=== PATIENT | female | born 1950 ===

== ENCOUNTER 2021-06-12 00:34 | Emergency (ER) | payer BC, OTHER ==
[2021-06-12 01:19] LABS: Basophils % 0.9 % (0-1.3); Lymphocytes % 49.7 % (15.3-44.8); RBC Red Blood Cell Count 4.21 M/uL (3.86-4.86)
[2021-06-12 01:20] LABS: Protime INR 0.91
[2021-06-12 01:35] LABS: Urine Blood Negative (Negative); Urine Glucose Negative (Negative); Urine Protein Negative (Negative); Urine Specific Gravity 1.015 (1.005-1.030); Urine pH 5.5 (5.0-7.0)
[2021-06-12 01:55] LABS: ALT/SGPT 35 U/L (12-78); AST/SGOT 26 U/L (15-37); Albumin 3.8 g/dL (3.4-5.0); Alkaline Phosphatase 74 U/L (45-117); BUN Blood Urea Nitrogen 18 mg/dL (7-18); Bicarbonate 26 mmol/L (21-32); Bilirubin Direct < 0.1 mg/dL (0-0.2); Bilirubin Total 0.1 mg/dL (0.2-1.0); Glucose Level 107 mg/dL (74-106); Magnesium 2.2 mg/dL (1.8-2.4); NT PRO-BNP 138 pg/mL (<125); Potassium 4.2 mmol/L (3.5-5.1); Protein, Total 7.3 g/dL (6.4-8.2); Sodium Level 141 mmol/L (136-145); Troponin (Emerg Dept Use Only) < 0.02 ng/mL (0.0-0.045)
[2021-06-12 01:58] LABS: Barbiturates NEGATIVE (NEGATIVE); Benzodiazepines NEGATIVE (NEGATIVE); Cocaine NEGATIVE (NEGATIVE); METHAMPHETAM NEGATIVE (NEGATIVE); Methadone NEGATIVE (NEGATIVE); Opiates NEGATIVE (NEGATIVE); Phencyclidine NEGATIVE (NEGATIVE); THC Cannibis NEGATIVE (NEGATIVE)
--- NOTE | 2021-06-12 04:21 | EDPHYS ---
Physician Documentation [facility] Name: Estelle Garcia Age: 71 yrs Sex: Female : 1950 Arrival Date: 06/12/2021 Time: 00:36 Bed 26 Private MD: ED Physician Dale Gunter HPI: 06/12 01:27 This 71 yrs old Female presents to ER via EMS with complaints of Fall Injury. 7 01:27 Details of fall: The patient fell from an upright position, while standing. 7 01:27 Onset: The symptoms/episode began/occurred just prior to arrival, today. Associated 7 injuries: The patient sustained injury to the head, contusion, hematoma. Severity of symptoms: At their worst the symptoms were moderate, earlier today, in the emergency department the symptoms are unchanged. Patient admitted to drinking alcohol tonight and fell. She denies any symptoms prior to falling.. Historical: - Allergies: 00:49 No Known Allergies; bc5 - PMHx: 00:49 None; bc5 - Immunization history:: Adult Immunizations up to date. - Social history:: Smoking status: Patient denies any tobacco usage or history of. Patient/guardian denies using IV drugs, tobacco products. - Immunization history: Last tetanus immunization: unknown. ROS: 01:27 Constitutional: Negative for fever, chills, and weight loss, Eyes: Negative for injury, mh7 pain, redness, and discharge, ENT: Negative for injury, pain, and discharge, Neck: Negative for injury, pain, and swelling, Cardiovascular: Negative for chest pain, palpitations, and edema, Respiratory: Negative for shortness of breath, cough, wheezing, and pleuritic chest pain, Abdomen/GI: Negative for abdominal pain, nausea, vomiting, diarrhea, and constipation, Back: Negative for injury and pain, : Negative for injury, bleeding, discharge, and swelling, MS/Extremity: Negative for injury and deformity, Neuro: Negative for headache, weakness, numbness, tingling, and seizure, Psych: Negative for depression, anxiety, suicide ideation, homicidal ideation, and hallucinations, Allergy/Immunology: Negative for hives, rash, and allergies, Endocrine: Negative for neck swelling, polydipsia, polyuria, polyphagia, and marked weight changes, Hematologic/Lymphatic: Negative for swollen nodes, abnormal bleeding, and unusual bruising. Exam: 01:27 Eyes: Pupils equal round and reactive to light, extra-ocular motions intact. Lids and mh7 lashes normal. Conjunctiva and sclera are non-icteric and not injected. Cornea within normal limits. Periorbital areas with no swelling, redness, or edema. ENT: Nares patent. No nasal discharge, no septal abnormalities noted. Tympanic membranes are normal and external auditory canals are clear. Oropharynx with no redness, swelling, or masses, exudates, or evidence of obstruction, uvula midline. Mucous membranes moist. Neck: Trachea midline, no thyromegaly or masses palpated, and no cervical lymphadenopathy. Supple, full range of motion without nuchal rigidity, or vertebral point tenderness. No Meningismus. Chest/axilla: Normal chest wall appearance and motion. Nontender with no deformity. No lesions are appreciated. Cardiovascular: Regular rate and rhythm with a normal S1 and S2. No gallops, murmurs, or rubs. Normal PMI, no JVD. No pulse deficits. Respiratory: Lungs have equal breath sounds bilaterally, clear to auscultation and percussion. No rales, rhonchi or wheezes noted. No increased work of breathing, no retractions or nasal flaring. Abdomen/GI: Soft, non-tender, with normal bowel sounds. No distension or tympany. No guarding or rebound. No evidence of tenderness throughout. Back: No spinal tenderness. No costovertebral tenderness. Full range of motion. Skin: Warm, dry with normal turgor. Normal color with no rashes, no lesions, and no evidence of cellulitis. MS/ Extremity: Pulses equal, no cyanosis. Neurovascular intact. Full, normal range of motion. 01:27 Constitutional: The patient appears in no acute distress, alert, awake, smells of alcohol, ETOH, Appears intoxicated 01:27 Head/face: Noted is contusion, that is superficial, of the right cheek, ecchymosis, that is mild, of the right cheek, tenderness, that is mild, of the right cheek. 01:27 Neuro: Orientation: unable to test, the patient is clinically intoxicated, Mentation: mh7 unable to test, the patient is clinically intoxicated, Memory: unable to test, the patient is clinically intoxicated, Cranial nerves: unable to test, the patient is clinically intoxicated, Cerebellar function: unable to test, the patient is clinically intoxicated, Motor: is normal, Sensation: is normal, Gait: not tested. seizure activity, is not displayed by the patient, Abnormal movements: there are no abnormal movements. Vital Signs: 00:48 BP 145 / 78; Pulse 77; Resp 17; Temp 97.9(O); Pulse Ox 100% on R/A; Weight 52.16 kg bc5 (R); Height 5 ft. 6 in. (167.64 cm) (R); Pain 0/10; 03:02 BP 133 / 75; Pulse 71; Resp 17; Temp 97.9(O); Pulse Ox 100% on R/A; Pain 0/10; bc5 04:45 BP 109 / 74 LA Supine (auto/reg); Pulse 72; Resp 16; Temp 98(O); Pulse Ox 100% ; Pain sj1 0/10; 00:48 Body Mass Index 18.56 (52.16 kg, 167.64 cm) bc5 [place] Coma Score: 00:51 Eye Response: spontaneous(4). Verbal Response: oriented(5). Motor Response: obeys bc5 commands(6). Total: 15. Trauma Score (Adult): 00:51 Eye Response: spontaneous(1); Verbal Response: oriented(1); Motor Response: obeys bc5 commands(2); Systolic BP: None(0); Respiratory Rate: 10 to 29 per min(4); Herminia Score: 15; Trauma Score: 8 MDM: 04:17 Differential diagnosis: abrasion, closed head injury, contusion, fracture. Data [facility] reviewed: vital signs, nurses notes, lab test result(s), cardiac enzymes, CBC, drug level(s), alcohol, electrolytes, EKG, radiologic studies, CT scan, plain films. Data interpreted: Pulse oximetry: on room air is 100 %. Interpretation: normal. Counseling: I had a detailed discussion with the patient and/or guardian regarding: the historical points, exam findings, and any diagnostic results supporting the discharge/admit diagnosis, lab results, radiology results, the need for outpatient follow up, to return to the emergency department if symptoms worsen or persist or if there are any questions or concerns that arise at home. Response to treatment: the patient's symptoms have markedly improved after treatment. ED course: No acute distress, vital signs stable, no focal neurological deficit. Awake, alert, and oriented x 4. Appropriate with questions. Ambulating without difficulty. She states that she had multiple alcoholic beverages last night and tripped over some furniture. at bedside and corroborates story. Patient and her request to be discharged in the ED at this time.. 04:21 Patient medically screened. [facility] 06/12 00:58 Order name: Basic Metabolic Panel [facility] 06/12 00:58 Order name: CBC with Diff [facility] 06/12 00:58 Order name: LFT's; Complete Time: 02:24 [facility] 06/12 00:58 Order name: Magnesium; Complete Time: 02:24 [facility] 06/12 00:58 Order name: NT PRO-BNP; Complete Time: 02:24 [facility] 06/12 00:58 Order name: PT-INR; Complete Time: 01:26 [facility] 06/12 00:58 Order name: Troponin (emerg Dept Use Only); Complete Time: 02:24 [facility] 06/12 00:58 Order name: XRAY Chest (1 view) [facility] 06/12 00:58 Order name: UDS; Complete Time: 02:24 [facility] 06/12 00:58 Order name: ETOH Level; Complete Time: 02:24 [facility] 06/12 00:59 Order name: Basic Metabolic Panel; Complete Time: 02:24 [facility] 06/12 00:59 Order name: CBC with Automated Diff; Complete Time: 01:26 [facility] 06/12 01:16 Order name: Type And Screen; Complete Time: 02:37 3 06/12 01:35 Order name: Urine Dipstick-Ancillary; Complete Time: 02:24 [facility] 06/12 00:58 Order name: EKG; Complete Time: 00:59 7 06/12 00:58 Order name: Cardiac monitoring; Complete Time: 01:08 [facility] 06/12 00:58 Order name: EKG - Nurse/Tech; Complete Time: 01:39 7 06/12 00:58 Order name: IV Saline Lock; Complete Time: 01:03 7 06/12 00:58 Order name: Labs collected and sent; Complete Time: 01:03 [facility] 06/12 00:58 Order name: O2 Per Protocol; Complete Time: 01:03 [facility] 06/12 00:58 Order name: O2 Sat Monitoring; Complete Time: 01:03 [facility] 06/12 00:58 Order name: Urine Dipstick-Ancillary (obtain specimen); Complete Time: 01:40 [facility] 06/12 00:58 Order name: CT Head C Spine [facility] 06/12 00:58 Order name: CT Facial Bones W/O Con [facility] Administered Medications: No medications were administered Disposition Summary: 06/12/21 04:21 Discharge Ordered Location: Home [facility] Problem: new [facility] Symptoms: have improved [facility] Condition: Stable [facility] Diagnosis - Alcohol use, unspecified with intoxication [facility] - Fall, Facial Contusions [facility] Followup: [facility] - With: Private Physician - When: 1 - 2 days - Reason: Worsening of condition, Recheck today's complaints, Continuance of care, Re-evaluation by your physician Discharge Instructions: - Discharge Summary Sheet [facility] - Alcohol Intoxication, Jrcv-[id number] [facility] - Facial or Scalp Contusion, [id number]-he-[id number] [facility] Forms: - Medication Reconciliation Form [facility] - Thank You Letter [facility] - Antibiotic Education [facility] - Prescription Opioid Use [facility] Signatures: Dispatcher [employer] EDMS Mulugeta Hogan, ANODIZE MACHINE OPERATOR-C ANODIZE MACHINE OPERATOR-Cla1 Dale Gunter MD MD [facility] Lynne Pantoja RN RN bc5
--- NOTE | 2021-06-12 04:21 | ER ---
Nurse's Notes [facility] Name: Estelle Garcia Age: 71 yrs Sex: Female : 1950 Arrival Date: 06/12/2021 Time: 00:36 Bed 26 Private MD: Diagnosis: Alcohol use, unspecified with intoxication;Fall, Facial Contusions Presentation: 06/12 00:45 Chief complaint: EMS states: Fall. Per EMS family reports Pt passed out, fell from 5 standing hitting face on floor. Per EMS Pt was confused at scene and was unable to recall falling down. swelling noted to right side of face, dried blood on lips. Pt endorsed 3 glasses of wine, oriented to self. but speaking in clear and complete sentences at this this. Dexi 109. Coronavirus screen: Vaccine status:. 00:45 Method Of Arrival: EMS: [place] [address] 00:48 Ebola Screen: Patient negative for fever greater than or equal to 101.5 degrees bc5 Fahrenheit, and additional compatible Ebola Virus Disease symptoms Patient denies exposure to infectious person. Patient denies travel to an Ebola-affected area in the 21 days before illness onset. No symptoms or risks identified at this time. Initial Sepsis Screen: Does the patient meet any 2 criteria? No. Patient's initial sepsis screen is negative. Does the patient have a suspected source of infection? No. Patient's initial sepsis screen is negative. Risk Assessment: Do you want to hurt yourself or someone else? Patient reports no desire to harm self or others. Onset of symptoms was June 12, 2021. 00:48 Acuity: EVERETTE 3 5 00:52 Care prior to arrival: None. Mechanism of Injury: Fall. Trauma event details: Injury bc5 occurred: June 12, 2021. Triage Assessment: 00:49 General: Appears comfortable, Behavior is cooperative, agitated, fussy. Pain: Denies bc5 pain. Trauma Activation: Alert Physician: ED Physician; Name: Jani; Notified At: ; Arrived At: Physician: General Surgeon; Name: ; Notified At: ; Arrived At: Physician: Radiology; Name: ; Notified At: ; Arrived At: Physician: Respiratory; Name: ; Notified At: ; Arrived At: Physician: Lab; Name: ; Notified At: ; Arrived At: Historical: - Allergies: 00:49 No Known Allergies; bc5 - PMHx: 00:49 None; bc5 - Immunization history:: Adult Immunizations up to date. - Social history:: Smoking status: Patient denies any tobacco usage or history of. Patient/guardian denies using IV drugs, tobacco products. - Immunization history: Last tetanus immunization: unknown. Screenin:50 Abuse screen: Denies threats or abuse. Denies injuries from another. Nutritional bc5 screening: No deficits noted. Tuberculosis screening: No symptoms or risk factors identified. Fall Risk Fall in past 12 months (25 points). No secondary diagnosis (0 pts). IV access (20 points). Ambulatory Aid- None/Bed Rest/Nurse Assist (0 pts). Gait- Normal/Bed Rest/Wheelchair (0 pts) Mental Status- Overestimates/Forgets Limitations (15 pts.). Total Kam Fall Scale indicates Low Risk Score (25-44 pts). Fall prevention measures have been instituted. Side Rails Up X 2 Placed close to Nursing Station Frequent Obs/Assesments occuring. Primary Survey: 00:50 NO uncontrolled hemorrhage observed. A: The patient is alert. Airway: patent. bc5 Breathing/Chest: Respiratory pattern: regular, Respiratory effort: unlabored. Circulation: Skin color: pink. Disability Alert. Exposure/Environment: All clothing and personal items were removed. There is no evidence of uncontrolled external bleeding. No obvious injuries are noted at this time. Reassessment Airway. 00:52 Reassessment Breathing/Chest Respiratory pattern Regular Respiratory effort Unlabored bc5 Circulation Heart rhythm Sinus rhythm Disability Alert. Secondary Survey: 00:55 HEENT: Face Other swelling and discoloration noted to right side of face. bc5 Gastrointestinal: No deficits noted. : No deficits noted. Musculoskeletal: No deficits noted. Assessment: 00:54 Neuro: Denies weakness blurred vision dizziness. EENT: Denies. Cardiovascular: No bc5 deficits noted. Respiratory: No deficits noted. GI: No deficits noted. : No deficits noted. Derm: No deficits noted. Musculoskeletal: No deficits noted. Injury Description: Bruise swelling noted to right face. Vital Signs: 00:48 BP 145 / 78; Pulse 77; Resp 17; Temp 97.9(O); Pulse Ox 100% on R/A; Weight 52.16 kg bc5 (R); Height 5 ft. 6 in. (167.64 cm) (R); Pain 0/10; 03:02 BP 133 / 75; Pulse 71; Resp 17; Temp 97.9(O); Pulse Ox 100% on R/A; Pain 0/10; bc5 04:45 BP 109 / 74 LA Supine (auto/reg); Pulse 72; Resp 16; Temp 98(O); Pulse Ox 100% ; Pain sj1 0/10; 00:48 Body Mass Index 18.56 (52.16 kg, 167.64 cm) bc5 Herminia Coma Score: 00:51 Eye Response: spontaneous(4). Verbal Response: oriented(5). Motor Response: obeys bc5 commands(6). Total: 15. Trauma Score (Adult): 00:51 Eye Response: spontaneous(1); Verbal Response: oriented(1); Motor Response: obeys bc5 commands(2); Systolic BP: None(0); Respiratory Rate: 10 to 29 per min(4); [place] Score: 15; Trauma Score: 8 ED Course: 00:36 Patient arrived in ED. eb 00:45 Lynne Pantoja, KIRSTEN is Primary Nurse. bc5 00:49 Triage completed. bc5 00:50 Dale Gunter MD is Attending Physician. mh7 00:52 Arm band placed on left wrist. bc5 00:52 No provider procedures requiring assistance completed. Inserted saline lock: 20 gauge bc5 in right antecubital area, using aseptic technique. 00:53 Placed in gown. Bed in low position. Call light in reach. Side rails up X2. bc5 00:53 Patient maintains SpO2 saturation greater than 95% on room air. Thermoregulation: NA. bc5 01:39 CT Head C Spine In Process Unspecified. EDMS 01:39 CT Facial Bones W/O Con In Process Unspecified. EDMS 01:39 Basic Metabolic Panel Sent. bc5 01:39 CBC with Diff Sent. bc5 01:39 XRAY Chest (1 view) Sent. bc5 01:40 Type And Screen Sent. bc5 01:40 Basic Metabolic Panel Sent. bc5 01:40 ETOH Level Sent. bc5 01:40 UDS Sent. bc5 01:46 XRAY Chest (1 view) In Process Unspecified. EDMS 04:45 IV discontinued, intact, bleeding controlled, No redness/swelling at site. sj1 Administered Medications: No medications were administered Intake: 00:51 NA bc5 Outcome: 04:21 Discharge ordered by . farhan 04:44 Discharged to home ambulatory, with family. sj1 04:44 Condition: stable 04:44 Discharge instructions given to patient, family, Instructed on discharge instructions, follow up and referral plans. Demonstrated understanding of instructions, follow-up care. 04:45 Patient's length of stay in the Emergency Department was greater than 2 hours. md pascal ordersPatient's length of stay extended due to 04:46 Patient left the ED. sj1 Signatures: Dispatcher [employer] EDMS Lynn Pederson Maurice, MD MD 7 Lynne Pantoja RN RN bc5 Kera Patel, KIRSTEN RN sj1 Corrections: (The following items were deleted from the chart) 00:56 00:45 Chief complaint: EMS states: Fall. Per EMS family reports Pt passed out, fell bc5 from standing hitting face on floor. Per EMS Pt was confused at scene and was unable to recall falling down. swelling noted to right side of face, dried blood on lips. Pt endorsed 3 glasses of wine, oriented to self. but speaking in clear and complete sentences at this this bc5
[2021-06-12 04:53] VITALS: O2SAT 100
[2021-06-12 04:56] VITALS: BP 109/74; TEMP 98
--- NOTE | 2021-06-12 07:50 | RAD REPORT ---
EXAM DESCRIPTION: RAD - Chest Single View - 06/12/2021 1:46 am CLINICAL HISTORY: Fall COMPARISON: Head C Spine Mpr Wo Con dated 06/12/2021 FINDINGS: Lines: None. Lungs: Mild patchy bilateral airspace disease noted P Pleural: No significant pleural effusions or pneumothorax. Cardiac: The heart size is within normal limits. Bones: No acute fractures. Other: IMPRESSION: Mild bilateral airspace opacities may reflect multifocal pneumonia.
--- NOTE | 2021-06-13 10:50 | RAD REPORT ---
EXAM DESCRIPTION: CT - Head C Spine Mpr Wo Con - 06/12/2021 6:04 am CLINICAL HISTORY: 71 years, Female, trauma COMPARISON: None. FINDINGS: Multiple transaxial tomograms of the brain were obtained from the base of the skull to the vertex without contrast. 2-D multiplanar reformats and the coronal and sagittal plane were performed and reviewed. Multiple axial CT images through the cervical spine were obtained at 2 mm slice thickness at 2 mm int erval reconstruction. In addition 2-D multiplanar reformats and the sagittal coronal plane were perfo rmed and reviewed. This exam was performed according to our departmental dose-optimization protocol, which includes auto mated exposure control, adjustment of the mA and/or kV according to patient size and/or use of iterat wesly reconstruction technique. CT head: Brain parenchyma demonstrate mild prominence of the sulci and gyri are corresponding to mild cerebral and cerebellar atrophy. There is no midline shift and/or mass effect. There is no evidence for acute intracranial hemorrhage. Lateral ventricles and cisterns displace normal appearance. No intra or extra axial fluid collections were seen. The calvarium is intact with no evidence for fract ure. The visualized portions of the paranasal sinuses and orbits demonstrate to be clear. CT C-spine: The alignment of the vertebral bodies are normal. There is no evidence of fracture or s ubluxation. There is minimal degenerative disc disease with decreased intervertebral disc height and posterior osteophyte complex at C4/C5, C5/C6 and C6/C7. The spinal canal demonstrate no evidence for significant stenosis. Neural foramina demonstrate to be unremarkable. The uncovertebral joints demons trate to be normal. There is no prevertebral soft tissue swelling. Small cystic structure with benign appearing is identified within the posterior left side vertebral body of C4 Visualized portions of the lung apices demonstrate to be unremarkable. Sagittal coronal reformatted images demonstrate no s ubluxation or bony abnormalities. IMPRESSION: Mild cerebral and cerebellar atrophy. No evidence for acute traumatic injury to the head or cervical spine. Minimal degenerative disc disease at C4-C7. Electronically signed by: Ayden Davis MD 06/12/2021 1:56 AM CDT Due to temporary technical issues with the PACS/Fluency reporting system, reports are being signed by the in house radiologist without review as a courtesy to ensure prompt reporting. The interpreting r adiologist is fully responsible for the content of the report.
--- NOTE | 2021-06-13 10:55 | RAD REPORT ---
EXAM DESCRIPTION: CT - Facial Bones W/ Mpr - 06/12/2021 6:04 am CLINICAL HISTORY: 71 years Female TRAUMA TECHNIQUE: Axial CT of the facial bones was performed without intravenous contrast with sagittal and coronal reformatted images. The CT study is performed according to ALARA (as low as reasonably achie vable) or ALARA/IMAGE GENTLY, with automatic adjustment of mA and/or kV according to patient size. Performed on: 06/12/2021 at 1:20 AM COMPARISON: None. FINDINGS: There is no evidence of acute facial bone fracture. The mandible is intact. The temporom andibular joints are preserved. Both globes are intact and are symmetric. The extraocular muscles and optic nerves are symmetric. T he intraconal fat is preserved. There is no evidence of intraorbital emphysema. There is no significant mucosal thickening of the paranasal sinuses. The nasal bones are intact. The bony nasal septum is midline. The anterior maxillary spine is intact. Mastoid air cells and middle ear cavities are clear. There is soft tissue swelling anterior to the right hemimandible, right hemimaxilla and right maxilla ry sinus most consistent with contusion and hematoma. IMPRESSION: 1. No evidence of acute facial bone fracture. 2. Soft tissue swelling anterior to the right hemimandible, right hemimaxilla and right maxillary sin us most consistent with contusion and hematoma. Electronically signed by: Jo Flores DO 06/12/2021 2:12 AM CDT Due to temporary technical issues with the PACS/Fluency reporting system, reports are being signed by the in house radiologist without review as a courtesy to ensure prompt reporting. The interpreting r adiologist is fully responsible for the content of the report.
== END 2021-06-12 04:46 | disposition home or self-care (01) ==
LOC: ER 00:34
DX: S00.83XA Contusion of other part of head, initial encounter (principal); F10.929 Alcohol use, unspecified with intoxication, unspecified; W18.39XA Other fall on same level, initial encounter; Y93.89 Activity, other specified; Y92.9 Unspecified place or not applicable
CPT/HCPCS: 36415; 70450; 70486; 71045; 72125; 76377; 80048; 80076; 80307; 80320; 81003; 83735; 83880; 84484; 85025; 85610; 86850; 86900; 86901; 99284; G0390